=== PATIENT | male | born 1980 | race Caucasian/White ===

== ENCOUNTER 2020-05-25 22:12 | Emergency (ER) | payer OTHER ==
[~2020-05-25] VITALS: Ht 172.7 cm; Wt 76.7 kg
[~2020-05-25 22:12] MED LIST: IBUPROFEN 800800 M1 PO; NORCO 5-325 TA1 EACH PO
[2020-05-25] MEDS ORDERED: AMPHETAMINE SAL30 MG PO (22:24)
[2020-05-25 22:52] LABS: ABSOLUTE NEUTROPHILS 6.5 thou/uL (1.4-8.2); BASOPHILS 0.4 % (0.0-2.0); EOSINOPHILS 1.1 % (0.0-3.0); HEMATOCRIT 44.6 % (42.0-52.0); HEMOGLOBIN 14.9 gm/dL (14.0-18.0); LYMPHOCYTES 32.7 % (24.0-44.0); MCH 29.9 pg (26.0-34.0); MCHC 33.4 g/dL (28.0-37.0); MCV 89.3 fL (80.0-100.0); MONOCYTES 8.3 % (1.0-8.0); PLATELET COUNT 268 thou/uL (150-400); POLYS 57.5 % (36.0-66.0); RBC 4.99 mil/uL (4.50-6.00); RDW 12.9 % (10.5-14.5); WBC 11.2 thou/uL (4.0-11.0)
[2020-05-25 22:56] LABS: ANION GAP 13 mmol/L (7-16); BUN 18 mg/dL (7-18); CALCIUM 9.8 mg/dL (8.5-10.1); CHLORIDE 101 mmol/L (98-107); CO2 24 mmol/L (21-32); CREATININE 1.5 mg/dL (0.7-1.3); GLUCOSE 99 mg/dL (74-106); POTASSIUM 3.8 mmol/L (3.5-5.1); SODIUM 138 mmol/L (136-145)
[2020-05-25 23:05] LABS: TROPONIN-I <0.06 ng/mL (<0.06)
[2020-05-26 00:40] VITALS: BP 110/66
--- NOTE | 2020-05-26 10:46 | EKG ---
[place] [address] [facility] [place] [address] ELECTROCARDIOGRAM REPORT Name: SRI WEAVER [facility] [id number] Admission: 05/25/20 Attend Phys: Discharge: 05/26/20 Date of : 84 Report #: [id number] [facility] ED Test Date: 2020-05-25 Test Time: 22:18:15 Pat Name: SRI WEAVER Department: Room: Gender: [place]: LETY : 1980 Requested By: Sunday Grajeda Order Number: [id number] MD: Hardik Martin Measurements Intervals [place] Rate: 121 P: 50 TN: 167 QRS: 38 QRSD: 87 T: 25 QT: 303 QTc: 430 Interpretive Statements Sinus tachycardia Compared to ECG 03/21/2008 20:10:37 Sinus rhythm no longer present Electronically Signed On 05-26-2020 10:45:52 MARKET DIRECTOR by Hardik Martin [email or web address] <ELECTRONICALLY SIGNED> By: Hardik Martin MD 05/26/20 1045 2218 2218 Hardik Martin MD /HU
== END 2020-05-26 00:43 | disposition home or self-care (01) ==
LOC: ER 22:12
PROVIDERS: Nurse Practitioner
DX: R07.89 Other chest pain (principal); Z20.828 Contact with and (suspected) exposure to other viral communicable diseases; Z88.5 Allergy status to narcotic agent